=== PATIENT | female | born 1955 | race Caucasian/White ===

== ENCOUNTER 2016-03-17 11:25 | Inpatient (IN) | payer BC ==
[~2016-03-17] VITALS: Ht 170.2 cm; Wt 87.5 kg
[2016-03-17 11:27] VITALS: BP 168/82; PULSE 106; RESP 15; TEMP 97.8; O2SAT 96
--- NOTE | 2016-03-17 11:59 | PD ---
HPI Chief Complaint: Skin Problem Time Seen by Provider: 11:57 Travel History International Travel<30 days: No Contact w/Intl Traveler<30days: No Traveled to known affect area: No History of Present Illness HPI 60-year-old female presents to the emergency department for evaluation of infection to her left great toe that she noticed approximate 4 days ago. Patient has a history of diabetic neuropathy and diabetes. She states she is a type II diabetic for a long time". However, she is on insulin. Patient states that she manages her blood sugars quite well. She states that her orthopedist cut her toenails back in February and did accidently cut a callus. She states that the toe was fine until approximately 4 days ago. She states she went to an urgent care prior to coming in the emergency department and was instructed to come to the emergency department for treatment. Patient denies any fevers or chills. She denies any other complaints at this time. PFSH Past Medical History Diabetes: Yes Social History Alcohol Use: No Tobacco Use: No Substance Use: No Allergies-Medications (Allergen,Severity, Reaction): Coded Allergies: No Known Allergies (Unverified , 03/17/16) Reported Meds & Prescriptions Reported Meds & Active Scripts Active Reported Gabapentin 100 Mg Cap 100 Mg PO BID Spironolactone 100 Mg Tab 100 Mg PO BIDPC Ramipril 5 Mg Cap 5 Mg PO BID Omeprazole 20 Mg Cap Atorvastatin (Atorvastatin Calcium) 20 Mg Tab 20 Mg PO HS Glipizide 10 Mg Tab 10 Mg PO BIDAC Take 30 minutes before a meal Metformin (Metformin HCl) 500 Mg Tab 500 Mg PO BIDPC With meals Lantus Solostar Pen Inj (Insulin Glargine) 300 Unit/3 Ml Pen 1 Units SQ Trulicity Inj (Dulaglutide Inj) 1.5 Mg/0.5 Ml Pen 1.5 Mg SQ Q7D Novolog Penfill Inj (Insulin Aspart) 300 Unit/3 Ml Pen 2-10 Units SQ TIDAC PRN Review of Systems Except as stated in HPI: all other systems reviewed are Neg Physical Exam Narrative GENERAL: Well-developed well-nourished female patient, ambulatory. Afebrile. SKIN: Warm and dry. The left great toe is erythematous. There is mildly erythematous lymphangiitis and extends usp up the left lower leg on the medial side. There does appear to be an abscess collection to the left medial great toe. HEAD: Normocephalic. Atraumatic EYES: No scleral icterus. No injection or drainage. NECK: Supple, trachea midline. No JVD or lymphadenopathy. CARDIOVASCULAR: Regular rate and rhythm without murmurs, gallops, or rubs. Left pedal pulses 2+. RESPIRATORY: Breath sounds equal bilaterally. No accessory muscle use. Lungs sounds are clear to auscultation. GASTROINTESTINAL: Abdomen soft, non-tender, nondistended. MUSCULOSKELETAL: No cyanosis, or edema. Patient has slightly limited range of motion of the left great toe. She has no sensation to the distal great toe, but states this is chronic for her due to diabetic neuropathy. BACK: Nontender without obvious deformity. No CVA tenderness. Data Data Last Documented VS Vital Signs Date Time Temp Pulse Resp B/P Pulse Ox O2 Delivery O2 Flow Rate FiO2 03/17/16 11:27 97.8 106 15 168/82 96 Orders Basic Metabolic Panel (Bmp) (03/17/16 11:55) Complete Blood Count With Diff (03/17/16 11:55) Blood Culture (03/17/16 11:55) Iv Access Insert/Monitor (03/17/16 11:55) Foot, Complete (Asw1vry) (03/17/16 ) Westergren Sedimentation Rate (03/17/16 11:55) C-Reactive Protein (Crp) (03/17/16 11:55) Lactic Acid Sepsis Protocol (03/17/16 11:59) Vancomycin Inj (Vancomycin Inj) (03/17/16 12:30) Piperacil-Tazo 4.5 Gm Premix (Zosyn 4.5 (03/17/16 12:30) Wound Culture And Gram Stain (03/17/16 12:45) Sodium Chlor 0.9% 1000 Ml Inj (Ns 1000 M (03/17/16 13:15) Labs Laboratory Tests Test 03/17/16 12:05 White Blood Count 7.7 TH/MM3 Red Blood Count 4.61 MIL/MM3 Hemoglobin 15.2 GM/DL Hematocrit 43.2 % Mean Corpuscular Volume 93.6 FL Mean Corpuscular Hemoglobin 32.9 PG Mean Corpuscular Hemoglobin 35.2 % Concent Red Cell Distribution Width 13.0 % Platelet Count 206 TH/MM3 Mean Platelet Volume 7.6 FL Neutrophils (%) (Auto) 59.4 % Lymphocytes (%) (Auto) 27.2 % Monocytes (%) (Auto) 11.1 % Eosinophils (%) (Auto) 1.6 % Basophils (%) (Auto) 0.7 % Neutrophils # (Auto) 4.6 TH/MM3 Lymphocytes # (Auto) 2.1 TH/MM3 Monocytes # (Auto) 0.9 TH/MM3 Eosinophils # (Auto) 0.1 TH/MM3 Basophils # (Auto) 0.1 TH/MM3 CBC Comment DIFF FINAL Differential Comment Erythrocyte Sedimentation Rate 16 mm/hr Sodium Level 140 MEQ/L Potassium Level 3.8 MEQ/L Chloride Level 102 MEQ/L Carbon Dioxide Level 28.0 MEQ/L Anion Gap 10 MEQ/L Blood Urea Nitrogen 11 MG/DL Creatinine 0.90 MG/DL Estimat Glomerular Filtration 64 ML/MIN Rate Random Glucose 75 MG/DL Lactic Acid Level 2.3 mmol/L Calcium Level 9.6 MG/DL C-Reactive Protein 3.71 MG/DL MDM Medical Decision Making Medical Screen Exam Complete: Yes Emergency Medical Condition: Yes Medical Record Reviewed: Yes Interpretation(s) x-ray left foot - CONCLUSION: No acute bony process Differential Diagnosis Abscess versus cellulitis versus osteomyelitis Narrative Course 60-year-old female presents to the emergency department for evaluation of infection to her left great toe that started approximately 4 days ago. Patient is diabetic with a history of peripheral neuropathy. CBC, BMP, blood cultures 2, lactic acid, sedimentation rate, CRP are ordered and pending. X-ray of the left foot is ordered and pending. CBC shows no acute abnormalities. BMP shows no acute abnormalities. CRP is elevated at 3.71. Sedimentation rate is 16. Lactic acid is elevated at 2.3. X -ray of the left foot shows no acute bony process. Patient gave verbal consent for incision and drainage. I did attempt to incise and drain the fluid collection, but minimal drainage was expelled. Wound culture was taken. Patient states her primary care physician was Dr. Jordan, but her insurance changed she is not currently have a primary care physician. Residents are paged for admission. Residents are paged for admission. Dr. Mccullough accepted admission. Procedures Procedure Narrative INCISION AND DRAINAGE OF ABSCESS: The area was prepped and was sterilely draped. A number 11 scalpel was used to make a 0.5-cm incision across the area of the abscess. Cultures were obtained. Minimal drainage was obtained. Sterile dressing applied. Sepsis Criteria SIRS Criteria (2 or more): Heart rate over 90 Diagnosis Primary Impression: Cellulitis of toe of left foot Additional Impression: Diabetes type 2, controlled Qualified Code: E11.628 - Controlled type 2 diabetes mellitus with other skin complication, with long-term current use of insulin Admitting Information Admitting Physician Requests: Observation Zeynep Vang Mar 17, 2016 11:59
[2016-03-17] MEDS ORDERED: DULA0.5I SQ (12:18)
[2016-03-17] MEDS ORDERED: ATOR20TA15 PO (12:18)
[2016-03-17] MEDS ORDERED: LANTINJ SQ (12:18)
[2016-03-17] MEDS ORDERED: SPIR100T PO (12:18)
[2016-03-17] MEDS ORDERED: GABA100C4 PO (12:18)
[2016-03-17] MEDS ORDERED: METF500T PO (12:18)
[2016-03-17] MEDS ORDERED: RAMI5CAP PO (12:18)
[2016-03-17] MEDS ORDERED: OMEP20CA2 (12:18)
[2016-03-17] MEDS ORDERED: NOVOINJ SQ (12:18)
[2016-03-17] MEDS ORDERED: GLIP10TA6 PO (12:18)
[2016-03-17 12:26] LABS: AUTOMATED NEUTROPHIL # 4.6 TH/MM3 (1.8-7.7); BASOPHIL # 0.1 TH/MM3 (0-0.2); BASOPHIL % 0.7 % (0.0-2.0); EOSINOPHIL # 0.1 TH/MM3 (0-0.4); EOSINOPHIL % 1.6 % (0.0-4.0); HEMATOCRIT 43.2 % (35.0-46.0); HEMO FLAGS DIFF FINAL; LYMPH % 27.2 % (9.0-44.0); LYMPHOCYTE # 2.1 TH/MM3 (1.0-4.8); MEAN CELL VOLUME 93.6 FL (80.0-100.0); MEAN CORPUSCULAR HEMOGLOBIN 32.9 PG (27.0-34.0); MEAN CORPUSCULAR HGB CONC 35.2 % (32.0-36.0); MONO % 11.1 % (0.0-8.0); NEUT % 59.4 % (16.0-70.0); PLATELET COUNT 206 TH/MM3 (150-450); RED BLOOD COUNT 4.61 MIL/MM3 (4.00-5.30); WHITE BLOOD COUNT 7.7 TH/MM3 (4.0-11.0)
[2016-03-17] MEDS ORDERED: VANCOMYCIN INJ 1,000 MG in SODIUM CHLOR 0.9% 250 ML INJ 250 ML IV ONE (12:30)
[2016-03-17] MEDS ORDERED: PIPERACIL-TAZO 4.5 GM PREMIX 100 ML IV ONE (12:30)
[2016-03-17 12:39] LABS: POTASSIUM 3.8 MEQ/L (3.5-5.1)
--- NOTE | 2016-03-17 12:42 | RADRPT ---
EXAM DATE/TIME: 03/17/2016 12:20 [facility] COMPARISON: No previous studies available for comparison. INDICATIONS : Left foot pain. Possible infection of the first digit. MEDICAL HISTORY : Diabetes mellitus type II. SURGICAL HISTORY : None. ENCOUNTER: Initial ACUITY: 2 weeks PAIN SCORE: 5/10 LOCATION: Left foot. FINDINGS: There is no evidence of fracture, dislocation or destructive change. There is a tiny plantar heel spu r. Ossifications adjacent to the fifth metatarsal base may be related to prior trauma. Nothing looks acute. CONCLUSION: No acute bony process Rafael Carbajal MD on March 17, 2016 at 12:35 Board Certified Radiologist. This report was verified electronically.
[2016-03-17] MEDS ORDERED: SODIUM CHLOR 0.9% 1000 ML INJ 1,000 ML IV ONE (13:15)
[2016-03-17] MEDS ORDERED: Vancomycin Consult Pharmacy 1 EA XX PRN (14:00)
[2016-03-17] MEDS ORDERED: ACETAMINOPHEN 325 MG TAB PO PRN (14:00)
[2016-03-17] MEDS ORDERED: NALOXONE HCL 0.4 MG/ML AMP IV PRN (14:00)
[2016-03-17] MEDS ORDERED: ZOLPIDEM TARTRATE 5 MG TAB PO PRN (14:00)
[2016-03-17] MEDS ORDERED: SODIUM CHLORIDE 0.9% FLUSH 5 ML FLUSH FLUSH PRN (14:00)
[2016-03-17] MEDS ORDERED: DEXTROSE 50% IN WATER 50 ML VIAL(D50) IV PUSH PRN (14:15)
[2016-03-17] MEDS ORDERED: GLUCAGON 1 MG/ML VIAL OTHER PRN (14:15)
[2016-03-17 14:16] LABS: LACTIC ACID GHOST NOT REPORTABLE
--- NOTE | 2016-03-17 14:24 | HHI.HP ---
HPI Service Family Medicine Primary Care Physician No Primary Care Physician Admission Diagnosis left great toe cellulitis Diagnoses: Chief Complaint: toe infection International Travel<30 Days: No Contact w/Intl Traveler<30days: No Known Affected Area: No History of Present Illness Patient is a 60-year-old female with a past medical history significant for DM type II who presents today for a toe infection. Patient states that she first noticed her toe turning red and bleeding 2 days ago. Of note, she does not have sensation in her feet due to diabetic neuropathy. Yesterday, she started having pain and swelling in her ankle region with the pain radiating up to her medial calf. This morning, she noticed greater redness spreading up from her toe to above her ankle. She soaked her feet last night and applied Neosporin to the cut in her toe. Patient states that she has an orthopedic surgeon cut her nails every 3 months. Her last visit was around February 22 during which the surgeon accidentally nicked her left great toe. She has not had any issues with that toe since that time, but decided to use a pumice on the callus that the surgeon knicked to get rid of the black appearance of dried blood. She use the pumice on Saturday, noticed bleeding from the left great toe on Saturday, and first started noticing toe redness on . She denies any fever, chills, nausea, vomiting, diarrhea, malaise, or fatigue. She is visiting the area from [place] with her . They plan on staying until April 03. She has not had a diabetic foot wound before. She is compliant with her insulin regimen. Review of Systems Constitutional: DENIES: Fatigue, Fever, Chills Endocrine: DENIES: Heat/cold intolerance Eyes: DENIES: Blurred vision Ears, nose, mouth, throat: DENIES: Nasal discharge Respiratory: DENIES: Cough, Shortness of breath Cardiovascular: DENIES: Chest pain, Palpitations Gastrointestinal: DENIES: Abdominal pain, Diarrhea, Nausea, Vomiting Genitourinary: DENIES: Dysuria Musculoskeletal: DENIES: Muscle aches Integumentary: COMPLAINS OF: Abnormal pigmentation, Rash Immunologic/allergic: DENIES: Urticaria Neurologic: DENIES: Headache Past Family Social History Past Medical History DM type II Past Surgical History Appendectomy Cataract surgery Carpal tunnel surgery Reported Medications Reported Meds & Active Scripts Active Reported Gabapentin 100 Mg Cap 100 Mg PO BID Spironolactone 100 Mg Tab 100 Mg PO BIDPC Ramipril 5 Mg Cap 5 Mg PO BID Omeprazole 20 Mg Cap Atorvastatin (Atorvastatin Calcium) 20 Mg Tab 20 Mg PO HS Glipizide 10 Mg Tab 10 Mg PO BIDAC Take 30 minutes before a meal Metformin (Metformin HCl) 500 Mg Tab 500 Mg PO BIDPC With meals Lantus Solostar Pen Inj (Insulin Glargine) 300 Unit/3 Ml Pen 1 Units SQ Trulicity Inj (Dulaglutide Inj) 1.5 Mg/0.5 Ml Pen 1.5 Mg SQ Q7D Novolog Penfill Inj (Insulin Aspart) 300 Unit/3 Ml Pen 2-10 Units SQ TIDAC PRN Allergies: Coded Allergies: No Known Allergies (Unverified , 03/17/16) Active Ordered Medications Current Medications Medications (Trade) Dose Ordered Sig/Masoud Route Start Time Stop Time Status Last Admin (NS 1000 ml Inj) 1,000 ml @ 999 mls/hr BOLUS ONCE IV 03/17/16 13:15 03/17/16 14:15 (NS Flush) 2 ml UNSCH PRN FLUSH 03/17/16 14:00 (NS Flush) 2 ml BID FLUSH 03/17/16 21:00 (Tylenol) 650 mg Q4H PRN PO 03/17/16 14:00 (Ambien) 5 mg HS PRN PO 03/17/16 14:00 Naloxone HCl 0.4 mg 0.4 mg UNSCH PRN IV 03/17/16 14:00 Pharmacy Profile Note 0 ml @ 0 mls/hr UNSCH XX 03/17/16 14:00 UNV Vancomycin HCl 1000 mg/Sodium Chloride 250 ml @ 250 mls/hr Q12H IV 03/18/16 01:30 UNV (Zosyn 3.375 Gm Premix) 50 ml @ 100 mls/hr Q6H IV 03/17/16 19:00 UNV Family History Father: Melanoma Mother: Lung cancer, DM type II Sister: DM type II Social History No tobacco, alcohol, or illicit drug use. Lives in [place] with her . They're currently in town visiting for the month. She is a retired lab worker. Physical Exam Vital Signs Vital Signs Date Time Temp Pulse Resp B/P Pulse Ox O2 Delivery O2 Flow Rate FiO2 03/17/16 11:27 97.8 106 15 168/82 96 Physical Exam GENERAL: This is a well-nourished, well-developed female patient, in no apparent distress. SKIN: No rashes, ecchymoses or lesions. Cool and dry. Left great toe appears erythematous, nontender, warm. 2mm laceration on medial aspect of the distal left great toe without drainage or bleeding. Erythema extends about 2 inches above ankle, outlined with marking pen. No edema. HEAD: Atraumatic. Normocephalic. No temporal or scalp tenderness. EYES: Pupils equal round and reactive. Extraocular motions intact. No scleral icterus. No injection or drainage. ENT: Nose without bleeding, purulent drainage or septal hematoma. Throat without erythema, tonsillar hypertrophy or exudate. Uvula midline. Airway patent. NECK: Trachea midline. No JVD or lymphadenopathy. Supple, nontender, no meningeal signs. CARDIOVASCULAR: Regular rate and rhythm without murmurs, gallops, or rubs. Strong pedal pulses bilaterally. RESPIRATORY: Clear to auscultation. Breath sounds equal bilaterally. No wheezes , rales, or rhonchi. GASTROINTESTINAL: Abdomen soft, non-tender, nondistended. No hepato-splenomegaly , or palpable masses. No guarding. MUSCULOSKELETAL: No joint tenderness, effusion, or edema noted. No calf tenderness. NEUROLOGICAL: Awake and alert. Cranial nerves II through XII intact. Motor and sensory grossly within normal limits. Normal speech. Laboratory Laboratory Tests Test 03/17/16 12:05 White Blood Count 7.7 Red Blood Count 4.61 Hemoglobin 15.2 Hematocrit 43.2 Mean Corpuscular Volume 93.6 Mean Corpuscular Hemoglobin 32.9 Mean Corpuscular Hemoglobin 35.2 Concent Red Cell Distribution Width 13.0 Platelet Count 206 Mean Platelet Volume 7.6 Neutrophils (%) (Auto) 59.4 Lymphocytes (%) (Auto) 27.2 Monocytes (%) (Auto) 11.1 Eosinophils (%) (Auto) 1.6 Basophils (%) (Auto) 0.7 Neutrophils # (Auto) 4.6 Lymphocytes # (Auto) 2.1 Monocytes # (Auto) 0.9 Eosinophils # (Auto) 0.1 Basophils # (Auto) 0.1 CBC Comment DIFF FINAL Differential Comment Erythrocyte Sedimentation Rate 16 Sodium Level 140 Potassium Level 3.8 Chloride Level 102 Carbon Dioxide Level 28.0 Anion Gap 10 Blood Urea Nitrogen 11 Creatinine 0.90 Estimat Glomerular Filtration 64 Rate Random Glucose 75 Lactic Acid Level 2.3 Calcium Level 9.6 C-Reactive Protein 3.71 Date/Time Procedure Status Source Growth 03/17/16 13:00 Gram Stain Received Wound Toe Pending 03/17/16 13:00 Wound Culture Received Wound Toe Pending 03/17/16 12:05 Aerobic Blood Culture Received Blood Peripheral Pending 03/17/16 12:05 Anaerobic Blood Culture Received Blood Peripheral Pending Result Diagram: 03/17/16 1205 03/17/16 1205 Septic Shock Reassessment Heart: Regular rate and rhythm Lungs: Clear Skin: Warm, Dry Peripheral Pulses: Bounding Right Dorsalis Pedis Bounding Left Dorsalis Pedis Capillary Refill: Brisk Assessment and Plan Assessment and Plan Patient is a 60-year-old female with a past medical history significant for DM type II who presents today for a toe infection and is admitted for cellulitis. Code Status Full Code. Discussed Condition With dw Dr. Mancilla Problem List: (1) Cellulitis of great toe, left Status: Acute Plan: Cellulitis of left great toe after using pumice stone on callus causing small laceration. Patient is diabetic and has neuropathy. Cellulitis radiates to just above ankle. CBC wnl Afebrile ESR wnl at 16 CRP mildly elevated at 3.71 Foot X ray shows no acute bony process s/p Zosyn 4.5g IV and 1L NS in ED Plan: - Vancomycin 1.5g IV Q18H with pharmacy consult - Zosyn 3.375mg IV Q6H - Tylenol PRN fever - Mild cellulitis in the setting of diabetic neuropathy. Anticipate improvement over the next 24 hours and discharge home on PO antibiotics tomorrow. (2) T2DM (type 2 diabetes mellitus) Status: Acute Plan: Hold home Metformin, Glipizide, Lantus, Trulicity and Novolog Medium SSI with Accuchecks Diabetic Diet (3) Nutrition, metabolism, and development symptoms Status: Acute Plan: Fluids: None, tolerating PO Electrolytes: wnl, continue to monitor and replete as needed Nutrition: Diabetic Diet DVT PPx: SCD's Problem Qualifiers (1) T2DM (type 2 diabetes mellitus): Qualified Code: E11.42 - Type 2 diabetes mellitus with diabetic polyneuropathy , with long-term current use of insulin Angela Mccullough MD R2 Mar 17, 2016 14:24
[2016-03-17] MEDS: INSULIN ASPART SUPPLEMENTAL SCALE SQ SCH ×2 (16:00→20:17)
[2016-03-17] MEDS: VANCOMYCIN INJ 1,500 MG in SODIUM CHLORID 0.9% 500 ML INJ 500 ML IV SCH (16:42)
[2016-03-17 17:35] VITALS: BP 130/62; PULSE 89; RESP 16; O2SAT 98
[2016-03-17] MEDS: PIPERACIL-TAZO 3.375 GM PREMIX 50 ML IV SCH (20:00)
[2016-03-17] MEDS: GABAPENTIN 100 MG CAP PO SCH (20:14)
[2016-03-17] MEDS: SPIRONOLACTONE 100 MG TAB PO SCH (20:14)
[2016-03-17] MEDS: ATORVASTATIN 20 MG TAB PO SCH (20:14)
[2016-03-17] MEDS: SODIUM CHLORIDE 0.9% FLUSH 5 ML FLUSH FLUSH SCH (20:15)
[2016-03-17] MEDS: RAMIPRIL 5 MG CAP PO SCH (20:16)
[2016-03-17 20:43] VITALS: BP 135/68; PULSE 85; RESP 21; TEMP 98.7; O2SAT 97
[2016-03-17 23:54] VITALS: BP 143/68; PULSE 65; RESP 21; TEMP 97.8; O2SAT 98
[2016-03-18] MEDS: PIPERACIL-TAZO 3.375 GM PREMIX 50 ML IV SCH ×4 (01:27→22:33)
[2016-03-18] MEDS ORDERED: VANCOMYCIN INJ 1,000 MG in SODIUM CHLOR 0.9% 250 ML INJ 250 ML IV SCH (02:00)
[2016-03-18 04:42] VITALS: BP 117/63; PULSE 91; RESP 21; TEMP 97.9; O2SAT 98
[2016-03-18] MEDS: INSULIN ASPART SUPPLEMENTAL SCALE SQ SCH ×4 (05:58→22:34)
[2016-03-18 06:10] LABS: AUTOMATED NEUTROPHIL # 4.6 TH/MM3 (1.8-7.7); BASOPHIL # 0.1 TH/MM3 (0-0.2); BASOPHIL % 0.8 % (0.0-2.0); EOSINOPHIL # 0.2 TH/MM3 (0-0.4); EOSINOPHIL % 2.1 % (0.0-4.0); HEMATOCRIT 40.4 % (35.0-46.0); HEMO FLAGS DIFF FINAL; LYMPHOCYTE # 2.1 TH/MM3 (1.0-4.8); MEAN CELL VOLUME 93.5 FL (80.0-100.0); MEAN CORPUSCULAR HEMOGLOBIN 32.8 PG (27.0-34.0); MONO % 10.5 % (0.0-8.0); NEUT % 59.6 % (16.0-70.0); PLATELET COUNT 185 TH/MM3 (150-450); RED BLOOD COUNT 4.32 MIL/MM3 (4.00-5.30); RED CELL DISTRIBUTION WIDTH 12.8 % (11.6-17.2); WHITE BLOOD COUNT 7.8 TH/MM3 (4.0-11.0)
[2016-03-18 06:40] LABS: BICARBONATE 28.4 MEQ/L (21.0-32.0); POTASSIUM 4.4 MEQ/L (3.5-5.1)
[2016-03-18 07:40] VITALS: BP 121/62; PULSE 78; RESP 18; TEMP 97.7; O2SAT 93
[2016-03-18] MEDS ORDERED: LEVA750T PO (07:43)
--- NOTE | 2016-03-18 07:44 | HHI.DCPOC ---
Discharge Care Plan Diagnosis: (1) Cellulitis of great toe, left (2) T2DM (type 2 diabetes mellitus) Goals to Promote Your Health * To prevent worsening of your condition and complications * To maintain your health at the optimal level Directions to Meet Your Goals Take your medications as prescribed Follow your dietary instruction Follow activity as directed Keep your appointments as scheduled Take your immunizations and boosters as scheduled If your symptoms worsen call your PCP, if no PCP go to Urgent Care Center or Emergency Room Smoking is Dangerous to Your Health. Avoid second hand smoke Call the 24-hour hour crisis hotline for domestic abuse at Angela Mccullough MD R2 Mar 18, 2016 07:44
[2016-03-18] MEDS: GABAPENTIN 100 MG CAP PO SCH ×2 (08:57→22:33)
[2016-03-18] MEDS: SPIRONOLACTONE 100 MG TAB PO SCH ×2 (08:57→18:41)
[2016-03-18] MEDS: RAMIPRIL 5 MG CAP PO SCH ×2 (08:57→22:33)
[2016-03-18] MEDS: SODIUM CHLORIDE 0.9% FLUSH 5 ML FLUSH FLUSH SCH ×2 (08:58→22:33)
[2016-03-18] MEDS: VANCOMYCIN INJ 1,500 MG in SODIUM CHLORID 0.9% 500 ML INJ 500 ML IV SCH (10:00)
--- NOTE | 2016-03-18 10:12 | HHI.FPPN ---
Subjective Remarks No acute issues overnight. Vitals are stable, patient remains afebrile. She notes some improvement in her left lower extremity redness, swelling, and pain, but states that overall, her left toe looks worse to her today. She denies any chest pain, shortness of breath, fever, chills, nausea or vomiting. She had three episodes of diarrhea overnight and states that she has a history of diarrhea with antibiotic use. (Angela Mccullough MD R2) Objective Vitals Vital Signs Date Time Temp Pulse Resp B/P Pulse Ox O2 Delivery O2 Flow Rate FiO2 03/18/16 07:40 97.7 78 18 121/62 93 03/18/16 04:42 97.9 91 21 117/63 98 03/17/16 23:54 97.8 65 21 143/68 98 03/17/16 20:43 98.7 85 21 135/68 97 03/17/16 17:35 89 16 130/62 98 Room Air 03/17/16 11:27 97.8 106 15 168/82 96 I/O 03/17/16 03/17/16 03/17/16 03/18/16 03/18/16 03/18/16 07:00 15:00 23:00 07:00 15:00 23:00 Intake Total 240 ml Balance 240 ml Intake Oral 240 ml # Voids 2 (Angela Mccullough MD R2) Result Diagram: 03/18/16 0554 03/18/16 0556 Imaging Last Impressions Foot X-Ray 03/17/16 0000 Signed Impressions: Service Date/Time: Thursday, March 17, 2016 12:20 - CONCLUSION: No acute bony process Rafael Carbajal MD Objective Remarks GENERAL: This is a well-nourished, well-developed female patient, sitting up in bed in no apparent distress. SKIN: No rashes, ecchymoses or lesions. Cool and dry. Left great toe appears erythematous, nontender, warm. 2mm laceration on medial aspect of the distal left great toe with pale skin sloughing. Erythema receding from marking pen outline just superior to ankle. No edema. HEAD: Atraumatic. Normocephalic. No temporal or scalp tenderness. EYES: Pupils equal round and reactive. Extraocular motions intact. No scleral icterus. No injection or drainage. ENT: Nose without bleeding, purulent drainage or septal hematoma. Throat without erythema, tonsillar hypertrophy or exudate. Uvula midline. Airway patent. NECK: Trachea midline. No JVD or lymphadenopathy. Supple, nontender, no meningeal signs. CARDIOVASCULAR: Regular rate and rhythm without murmurs, gallops, or rubs. Strong pedal pulses bilaterally. RESPIRATORY: Clear to auscultation. Breath sounds equal bilaterally. No wheezes , rales, or rhonchi. GASTROINTESTINAL: Abdomen soft, non-tender, nondistended. No hepato-splenomegaly , or palpable masses. No guarding. MUSCULOSKELETAL: No joint tenderness, effusion, or edema noted. No calf tenderness. NEUROLOGICAL: Awake and alert. Cranial nerves II through XII intact. Motor and sensory grossly within normal limits. Normal speech. (Angela Mccullough MD R2) A/P Assessment and Plan Patient is a 60-year-old female with a past medical history significant for DM type II who presented for a toe infection and was admitted for cellulitis. Discharge Planning Anticipate discharge in the next 2-3 days pending clinical improvement. (Angela Mccullough MD R2) Attending Attestation A detailed discussion involving Dr Keating, Dr Mccullough, Dr Liu and MS Matos about patients admission occurred this am, Patient was then seen and examined, Agree with details of this note, Agree with Assessment and Plan, See Orders. ( Kendell Mancilla MD) Problem List: (1) Cellulitis of great toe, left Status: Acute Plan: Cellulitis of left great toe after using pumice stone on callus causing small laceration. Patient is diabetic and has neuropathy. s/p attempted I&D in ED, no abscess present Erythema improving on physical exam. CBC wnl Afebrile ESR wnl at 16 CRP mildly elevated at 3.71 Foot X ray shows no acute bony process s/p Zosyn 4.5g IV and 1L NS in ED Anticipate 2-3 more days of IV antibiotics Plan: - Vancomycin 1.5g IV Q18H with pharmacy consult - Zosyn 3.375mg IV Q6H - Tylenol PRN fever - Continue to monitor progress. (2) T2DM (type 2 diabetes mellitus) Status: Acute Plan: Hold home Metformin, Glipizide, Lantus, Trulicity and Novolog Bedside glucose ranging 139-145 Low-dose SSI with Accuchecks Diabetic Diet (3) Nutrition, metabolism, and development symptoms Status: Acute Plan: Fluids: None, tolerating PO Electrolytes: wnl, continue to monitor and replete as needed Nutrition: Diabetic Diet DVT PPx: SCD's, Lovenox 40mg SQ Q24H (Angela Mccullough MD R2) Problem Qualifiers (1) T2DM (type 2 diabetes mellitus): Qualified Code: E11.42 - Type 2 diabetes mellitus with diabetic polyneuropathy , with long-term current use of insulin Angela Mccullough MD R2 Mar 18, 2016 10:12 Kendell Mancilla MD Mar 18, 2016 20:51
[2016-03-18 12:00] VITALS: BP 116/58; PULSE 89; RESP 18; TEMP 96; O2SAT 96
[2016-03-18] MEDS: ENOXAPARIN SODIUM 40 MG/0.4 ML SYRINGE SQ SCH (12:14)
[2016-03-18] MEDS: LACTOBACILLUS ACIDOPHILUS TAB PO SCH ×2 (12:15→18:41)
[2016-03-18 16:00] VITALS: BP 127/78; PULSE 85; RESP 18; TEMP 95.8; O2SAT 97
[2016-03-18 20:32] VITALS: BP 127/67; PULSE 85; RESP 21; TEMP 98.7; O2SAT 97
[2016-03-18] MEDS: ATORVASTATIN 20 MG TAB PO SCH (22:33)
[2016-03-18 23:39] VITALS: BP 128/68; PULSE 87; RESP 18; TEMP 98.7; O2SAT 97
[2016-03-19] MEDS: PIPERACIL-TAZO 3.375 GM PREMIX 50 ML IV SCH ×4 (01:51→20:32)
[2016-03-19] MEDS: VANCOMYCIN INJ 1,500 MG in SODIUM CHLORID 0.9% 500 ML INJ 500 ML IV SCH ×2 (04:22→21:32)
[2016-03-19 04:41] VITALS: BP 127/68; PULSE 87; RESP 21; TEMP 97.9; O2SAT 98
[2016-03-19] MEDS: INSULIN ASPART SUPPLEMENTAL SCALE SQ SCH ×4 (05:33→20:40)
[2016-03-19 06:19] LABS: HEMATOCRIT 41.7 % (35.0-46.0); MEAN CELL VOLUME 93.6 FL (80.0-100.0); MEAN CORPUSCULAR HEMOGLOBIN 32.1 PG (27.0-34.0); MEAN CORPUSCULAR HGB CONC 34.3 % (32.0-36.0); PLATELET COUNT 186 TH/MM3 (150-450); RED BLOOD COUNT 4.45 MIL/MM3 (4.00-5.30); RED CELL DISTRIBUTION WIDTH 12.7 % (11.6-17.2); REVIEW FLAG FINAL; WHITE BLOOD COUNT 6.9 TH/MM3 (4.0-11.0)
[2016-03-19 06:41] LABS: BICARBONATE 26.4 MEQ/L (21.0-32.0)
--- NOTE | 2016-03-19 07:32 | HHI.FPPN ---
Subjective Remarks Acute issues overnight. Vitals are stable, patient remained afebrile. She has had 1 episode of diarrhea this morning. Diarrhea is nonbloody and watery. She has noticed significant improvement in her redness, swelling and pain in her left lower extremity today. She denies any chest pain, shortness breath, fever , chills, nausea or vomiting. (Angela Mccullough MD R2) Objective Vitals Vital Signs Date Time Temp Pulse Resp B/P Pulse Ox O2 Delivery O2 Flow Rate FiO2 03/19/16 04:41 97.9 87 21 127/68 98 03/18/16 23:39 98.7 87 18 128/68 97 03/18/16 20:32 98.7 85 21 127/67 97 03/18/16 16:00 95.8 85 18 127/78 97 03/18/16 12:00 96.0 89 18 116/58 96 03/18/16 07:40 97.7 78 18 121/62 93 I/O 03/18/16 03/18/16 03/18/16 03/19/16 03/19/16 03/19/16 07:00 15:00 23:00 07:00 15:00 23:00 Intake Total 240 ml 720 ml 480 ml 120 ml Balance 240 ml 720 ml 480 ml 120 ml Intake Oral 240 ml 720 ml 480 ml 120 ml # Voids 2 8 2 # Bowel Movements 1 1 (Angela Mccullough MD R2) Result Diagram: 03/19/16 0551 03/19/16 0551 Imaging Last Impressions Foot X-Ray 03/17/16 0000 Signed Impressions: Service Date/Time: Thursday, March 17, 2016 12:20 - CONCLUSION: No acute bony process Rafael Carbajal MD Objective Remarks GENERAL: This is a well-nourished, well-developed female patient, sitting up in bed in no apparent distress. SKIN: No rashes, ecchymoses or lesions. Cool and dry. Left great toe erythema receding, nontender, warm. 2mm laceration on medial aspect of the distal left great toe with pale skin sloughing, possible blister development. Erythema receding from marking pen outline just superior to ankle. No edema. HEAD: Atraumatic. Normocephalic. No temporal or scalp tenderness. EYES: Pupils equal round and reactive. Extraocular motions intact. No scleral icterus. No injection or drainage. ENT: Nose without bleeding, purulent drainage or septal hematoma. Throat without erythema, tonsillar hypertrophy or exudate. Uvula midline. Airway patent. NECK: Trachea midline. No JVD or lymphadenopathy. Supple, nontender, no meningeal signs. CARDIOVASCULAR: Regular rate and rhythm without murmurs, gallops, or rubs. Strong pedal pulses bilaterally. RESPIRATORY: Clear to auscultation. Breath sounds equal bilaterally. No wheezes , rales, or rhonchi. GASTROINTESTINAL: Abdomen soft, non-tender, nondistended. No hepato-splenomegaly , or palpable masses. No guarding. MUSCULOSKELETAL: No joint tenderness, effusion, or edema noted. No calf tenderness. NEUROLOGICAL: Awake and alert. Cranial nerves II through XII intact. Motor and sensory grossly within normal limits. Normal speech. (Angela Mccullough MD R2) A/P Assessment and Plan Patient is a 60-year-old female with a past medical history significant for DM type II who presented for a toe infection and was admitted for cellulitis. Discharge Planning Anticipate discharge tomorrow pending continued clinical improvement. (Angela Mccullough MD R2) Attending Attestation Patient seen and examined. Case reviewed and discussed with the resident team. Agree with plan of care as discussed with me and documented in the resident note. (Kendell Mancilla MD) Problem List: (1) Cellulitis of great toe, left Status: Acute Plan: Improving. Cellulitis of left great toe after using pumice stone on callus causing small laceration. Patient is diabetic and has neuropathy. s/p attempted I&D in ED, no abscess present CBC wnl Afebrile ESR wnl at 16 CRP mildly elevated at 3.71 Foot X ray shows no acute bony process Lactic acid initially trending up from 2.3-4.3, now resolved at 0.9 s/p Zosyn 4.5g IV and 1L NS in ED Plan: - Vancomycin 1.5g IV Q18H with pharmacy consult - Zosyn 3.375mg IV Q6H - Tylenol PRN fever - Continue to monitor progress. (2) T2DM (type 2 diabetes mellitus) Status: Acute Plan: Hold home Metformin, Glipizide, Lantus, Trulicity and Novolog Bedside glucose ranging [id number], requiring 3 units in the past 24 hours Low-dose SSI with Accuchecks Diabetic Diet (3) Nutrition, metabolism, and development symptoms Status: Acute Plan: Fluids: None, tolerating PO Electrolytes: wnl, continue to monitor and replete as needed Nutrition: Diabetic Diet DVT PPx: SCD's, Lovenox 40mg SQ Q24H (Angela Mccullough MD R2) Problem Qualifiers (1) T2DM (type 2 diabetes mellitus): Qualified Code: E11.42 - Type 2 diabetes mellitus with diabetic polyneuropathy , with long-term current use of insulin Angela Mccullough MD R2 Mar 19, 2016 07:32 Kendell Mancilla MD Mar 20, 2016 19:08
[2016-03-19 08:06] VITALS: BP 118/60; PULSE 83; RESP 20; TEMP 97.5; O2SAT 95
[2016-03-19] MEDS: SODIUM CHLORIDE 0.9% FLUSH 5 ML FLUSH FLUSH SCH ×2 (08:09→20:32)
[2016-03-19] MEDS: LACTOBACILLUS ACIDOPHILUS TAB PO SCH ×3 (08:48→16:35)
[2016-03-19] MEDS: RAMIPRIL 5 MG CAP PO SCH ×2 (08:48→20:33)
[2016-03-19] MEDS: SPIRONOLACTONE 100 MG TAB PO SCH ×3 (08:48→17:00)
[2016-03-19] MEDS: GABAPENTIN 100 MG CAP PO SCH ×2 (08:48→20:33)
[2016-03-19] MEDS: ENOXAPARIN SODIUM 40 MG/0.4 ML SYRINGE SQ SCH (11:00)
[2016-03-19 11:26] VITALS: BP 135/68; PULSE 83; RESP 18; TEMP 97.9; O2SAT 96
[2016-03-19 16:02] VITALS: BP 114/82; PULSE 89; RESP 18; TEMP 97; O2SAT 97
[2016-03-19 20:00] VITALS: BP 116/68; PULSE 81; RESP 16; TEMP 97.1; O2SAT 98
[2016-03-19] MEDS: ATORVASTATIN 20 MG TAB PO SCH (20:33)
[2016-03-20] VITALS: BP 140/71; PULSE 75; RESP 18; TEMP 96.5; O2SAT 97
[2016-03-20] MEDS: PIPERACIL-TAZO 3.375 GM PREMIX 50 ML IV SCH ×2 (01:08→08:52)
--- NOTE | 2016-03-20 01:19 | HHI.DS ---
Discharge Summary Admission Date Mar 18, 2016 at 09:21 Discharge Date: Mar 20, 2016 Admitting Diagnosis left great toe cellulitis (1) Cellulitis of great toe, left Diagnosis: Principal Plan: Cellulitis of L great toe after using pumice stone on callus causing small laceration. Patient is diabetic with significant neuropathy. S/p attempted I&D in ED 03/17, no abscess present. Wound culture (03/17) grew Staph aureus. Blood cultures (03/17) neg x2. Afebrile. CBC, ESR wnl. CRP mildly elevated 3.7. Lactic acid peaked at 4.3, now resolved. Foot Xray: no bony process Plan: - Vancomycin 1.5g IV Q18H with pharmacy consult (03/17-03/20) - Zosyn 3.375mg IV Q6H (03/17-03/20) - Discharge with Levaquin 750mg x7 days (03/21- 03/27)- 10 days total treatment - Follow up with primary care provider in 1 week (2) Recurrent candidiasis of vagina Diagnosis: Secondary Plan: -discharge with diflucan 150mg x1 for ppx for recurrent vulvovaginitis while on abx (3) T2DM (type 2 diabetes mellitus) Diagnosis: Secondary Plan: While in hospital, held home meds, LSSI, diabetic diet At discharge, restart home Metformin, Glipizide, Lantus, Trulicity and Novolog (4) HLD (hyperlipidemia) Diagnosis: Secondary Plan: Continue home Lipitor (5) HTN (hypertension) Diagnosis: Secondary Plan: Continue home ramipril, spironolactone (6) Low back pain Diagnosis: Secondary Plan: Continue home gabapentin [facility] Procedures 03/17/16- Attempted I&D in ED, no abscess present Brief History 60y female with DM2, visiting from [place], presents today for toe infection. She has severe diabetic neuropathy and used a pumace stone on her large toe 3 days ago to get rid of blood blister under skin. Toe had redness and bleeding x2 days with pain and swelling up medial calf x1 day. Treated feet by soaking and applying Neosporin with no significant improvement. Has orthopedic surgeon cut her nails every 3 months. Denies any fever, chills, nausea, vomiting, diarrhea, malaise, or fatigue. Denies hx of diabetic foot wound. Compliant with her insulin regimen. CBC/BMP: 03/19/16 0551 03/19/16 0551 Significant Findings Laboratory Tests Test 03/17/16 03/18/16 03/18/16 03/18/16 12:05 05:54 05:56 10:45 Monocytes (%) (Auto) 11.1 % 10.5 % (0.0-8.0) (0.0-8.0) Estimat Glomerular Filtration 64 ML/MIN (>89) 55 ML/MIN (>89) Rate Lactic Acid Level 2.3 mmol/L 4.3 mmol/L (0.4-2.0) (0.4-2.0) C-Reactive Protein 3.71 MG/DL (0.00-0.30) Creatinine 1.02 MG/DL (0.50-1.00) Random Glucose 144 MG/DL (74-106) Test 03/19/16 05:51 Estimat Glomerular Filtration 60 ML/MIN (>89) Rate Random Glucose 166 MG/DL (74-106) Imaging Last Impressions Foot X-Ray 03/17/16 0000 Signed Impressions: Service Date/Time: Thursday, March 17, 2016 12:20 - CONCLUSION: No acute bony process Rafael Carbajal MD PE at Discharge GENERAL: Adult female in NAD SKIN: Left great toe erythema receding, nontender, warm. 2mm laceration on medial aspect of the distal left great toe with pale skin sloughing, possible blister development. Erythema receding from marking pen outline just superior to ankle. No edema. HEENT: PERRL. MMM CV: RRR. No murmurs. +2 dorsalis pedis pulses RESP: Lungs CTAB. GI: Soft, NTND. MSK: Muscle tone symmetrical. Moves limbs against gravity without difficulty. NEURO: Apart from dullness to touch in bilateral feet, grossly motor and sensory intact. PSYCH: Normal affect. Good insight. Hospital Course 60y female with DM2 and significant diabetic neuropathy hospitalized 03/17- for treatment Staph aureus cellulitis L great toe/LLE. Pt cause irritation and infection of skin after using pumace stone to remove unsightly blood blister. Pt has significant neuropathy and could not feel injury. Wound culture grew Staph Aureus. Treated with Vancomycin IV and Zosyn IV (03/17- 03/20). Discharged with 7d Levaquin (03/21-03/27)- 10 days total and bactroban ointment. Discharged with Macrobid 50mg HS x7 days for UTI ppx at pt request while on abx. Mild bon-blood diarrhea secondary to abx while hospitalized, resolved at discharge, negative for C. diff. Medication changes and recommended follow up as below. . Pt Condition on Discharge: Stable Discharge Disposition: Discharge Home Discharge Instructions DIET: Follow Instructions for: Diabetic Diet Activities you can perform: Regular-No Restrictions (do not go into ocean/ jacuzzis until entirely healed/at least 1 week) Follow up Referrals: PCP Follow-up - 1 Week New Medications: Fluconazole (Diflucan) 150 Mg Tab 150 MG PO ONCE Take one pill day of discharge. No further action needed. If symptoms persist 7 days later, refill script, take second pill. Infection #1 Ref 1 TAB Levofloxacin (Levaquin) 750 Mg Tab 750 MG PO DAILY Infection #7 Ref 0 TAB Mupirocin Topical (Bactroban Topical) 2 % Cream 1 APPLIC TOPICAL BID Apply for one week to toe Mgmt Bacterial Infection #1 Ref 0 TUBE Continued Medications: Atorvastatin (Atorvastatin) 20 Mg Tab 20 MG PO HS Cholesterol Management #30 Ref 0 TAB Dulaglutide Inj (Trulicity Inj) 1.5 Mg/0.5 Ml Pen 1.5 MG SQ Q7D Blood Sugar Management #4 Ref 0 PEN Gabapentin (Gabapentin) 100 Mg Cap 100 MG PO BID #60 Ref 0 CAP Glipizide (Glipizide) 10 Mg Tab 10 MG PO BIDAC Take 30 minutes before a meal Blood Sugar Management #60 Ref 0 TAB Insulin Aspart Inj (Novolog Penfill Inj) 300 Unit/3 Ml Pen 2-10 UNITS SQ TIDAC PRN Blood Sugar Management Ref 0 BOX Insulin Glargine Inj (Lantus Solostar Pen Inj) 300 Unit/3 Ml Pen 1 UNITS SQ Blood Sugar Management Ref 0 PEN Metformin (Metformin) 500 Mg Tab 500 MG PO BIDPC With meals Blood Sugar Management #60 Ref 0 TAB Omeprazole (Omeprazole) 20 Mg Cap Ramipril (Ramipril) 5 Mg Cap 5 MG PO BID #60 Ref 0 CAP Spironolactone (Spironolactone) 100 Mg Tab 100 MG PO BIDPC #60 Ref 0 TAB Bibiana Liu MD R1 Mar 20, 2016 01:19
[2016-03-20 04:00] VITALS: BP 125/72; PULSE 78; RESP 16; TEMP 97; O2SAT 98
[2016-03-20] MEDS: INSULIN ASPART SUPPLEMENTAL SCALE SQ SCH (05:31)
--- NOTE | 2016-03-20 06:57 | HHI.FPPN ---
Subjective Remarks Overnight, URIEL. AFVSS. Good Ins, outs not recorded. Eating, voiding, stooling without difficulty. Ambulating per PT. No pain in ankle (no sensation in foot at baseline). Redness almost completely resolved. Expressed understanding of discharge with 7 days antibiotic, bactroban creme to apply to foot, and not going into jacuzzis/ocean for at least 1 week. Pt stated she always gets yeast infection while on abx- asks for rx prophylactic med (Bibiana Liu MD R1) Objective Vitals Vital Signs Date Time Temp Pulse Resp B/P Pulse Ox O2 Delivery O2 Flow Rate FiO2 03/20/16 04:00 97.0 78 16 125/72 98 03/20/16 00:00 96.5 75 18 140/71 97 03/19/16 20:00 97.1 81 16 116/68 98 03/19/16 16:02 97.0 89 18 114/82 97 03/19/16 11:26 97.9 83 18 135/68 96 03/19/16 08:06 97.5 83 20 118/60 95 I/O 03/19/16 03/19/16 03/19/16 03/20/16 03/20/16 03/20/16 07:00 15:00 23:00 07:00 15:00 23:00 Intake Total 120 ml 840 ml 240 ml Balance 120 ml 840 ml 240 ml Intake Oral 120 ml 840 ml 240 ml # Voids 2 3 1 # Bowel Movements 1 (Bibiana Liu MD R1) Result Diagram: 03/19/16 0551 03/19/16 0551 Imaging Last Impressions Foot X-Ray 03/17/16 0000 Signed Impressions: Service Date/Time: Thursday, March 17, 2016 12:20 - CONCLUSION: No acute bony process Rafael Carbajal MD Objective Remarks GENERAL: Adult female in NAD SKIN: Left great toe erythema almost resolved. Significantly improved from area marked mid-calf on admissio Nontender, warm, no edema. Blood blister development, no fluid expression from small laceration. HEET: PERRL. MMM CV: RRR. No murmurs. +2 dorsalis pedis pulses RESP: Lungs CTAB. GI: NTND. MSK: Muscle tone symmetrical NEURO: Dullness to touch in bilateral feet, otherwise grossly motor and sensory intact. PSYCH: Normal affect. Good insight. Procedures 03/17/16- Attempted I&D in ED, no abscess present (Bibiana Liu MD R1) Urinary Catheter: No (Bibiana Liu MD R1) Vascular Central Line Catheter: No (Bibiana Liu MD R1) A/P Assessment and Plan 60y with DM2 and significant peripheral neuropathy admitted 03/17/15 for Staph aureus cellulitis LLE secondary to abrasion with pumice stone. Discharge Planning Today, 03/20/15, ready for discharge provided medications are printed and in chart SDW: Dr. Mancilla (Bibiana Liu MD R1) Attending Attestation Patient seen and examined. Case reviewed and discussed with the resident team. Agree with plan of care as discussed with me and documented in the resident note. (Kendell Mancilla MD) Problem List: (1) Cellulitis of great toe, left Status: Acute Plan: Cellulitis of L great toe after using pumice stone on callus causing small laceration. Patient is diabetic with significant neuropathy. S/p attempted I&D in ED 03/17, no abscess present. Wound culture (03/17) grew Staph aureus. Blood cultures (03/17) neg x2. Afebrile. CBC, ESR wnl. CRP mildly elevated 3.7. Lactic acid peaked at 4.3, now resolved. Foot Xray: no bony process Plan: - Vancomycin 1.5g IV Q18H with pharmacy consult (03/17-03/20) - Zosyn 3.375mg IV Q6H (03/17-03/20) - Discharge with Levaquin 750mg x7 days (03/21- 03/27)- 10 days total treatment - Follow up with primary care provider in 1 week (2) Recurrent candidiasis of vagina Status: Chronic Plan: - Discharge with Diflucan 150mg x1 for vulvovaginal candidiasis ppx while on abx. Take day of discharge (3) T2DM (type 2 diabetes mellitus) Status: Acute Plan: While in hospital, held home meds, LSSI, diabetic diet At discharge, restart home Metformin, Glipizide, Lantus, Trulicity and Novolog (4) HLD (hyperlipidemia) Status: Chronic Plan: Continue home Lipitor (5) HTN (hypertension) Status: Chronic Plan: Continue home ramipril, spironolactone (6) Low back pain Status: Chronic Plan: Continue home gabapentin (7) Nutrition, metabolism, and development symptoms Status: Acute Plan: Fluids: None, tolerating PO Electrolytes: wnl, continue to monitor and replete as needed Nutrition: Diabetic Diet DVT PPx: SCD's, Lovenox 40mg SQ Q24H (Bibiana Liu MD R1) Problem Qualifiers (1) T2DM (type 2 diabetes mellitus): Qualified Code: E11.42 - Type 2 diabetes mellitus with diabetic polyneuropathy , with long-term current use of insulin (2) Low back pain: Bibiana Liu MD R1 Mar 20, 2016 06:57 Kendell Mancilla MD Mar 20, 2016 19:10
[2016-03-20 07:30] LABS: BICARBONATE 25.2 MEQ/L (21.0-32.0); POTASSIUM 3.7 MEQ/L (3.5-5.1)
[2016-03-20 08:00] VITALS: BP 142/82; PULSE 84; RESP 18; TEMP 97; O2SAT 99
[2016-03-20] MEDS: GABAPENTIN 100 MG CAP PO SCH (08:52)
[2016-03-20] MEDS: RAMIPRIL 5 MG CAP PO SCH (08:52)
[2016-03-20] MEDS: LACTOBACILLUS ACIDOPHILUS TAB PO SCH (08:52)
[2016-03-20] MEDS: SODIUM CHLORIDE 0.9% FLUSH 5 ML FLUSH FLUSH SCH (08:53)
[2016-03-20] MEDS: SPIRONOLACTONE 100 MG TAB PO SCH (08:53)
[2016-03-20] MEDS ORDERED: NITR50CA27 PO (09:27)
[2016-03-20] MEDS ORDERED: LEVA750T PO ×2 (09:27→11:31)
[2016-03-20] MEDS ORDERED: MUPI2%T TOPICAL ×2 (09:29→11:31)
[2016-03-20] MEDS ORDERED: DIFL150T PO ×2 (11:26→11:30)
[2016-03-20] MEDS ORDERED: PHARMACY ORDERED LAB XX ONE (21:45)
== END 2016-03-20 11:48 | disposition home or self-care (01) | DRG 603 ==
LOC: EDBD → NEPE 11:25 → NEDH 13:15 → NEPGCP 18:23 → OBSVTOIN 03-18 09:21 → HOCB 03-19 16:05
PROVIDERS: ADMIT Family Medicine; ATTEND Family Medicine
PROC: 0H9NXZZ Drainage of Left Foot Skin, External Approach (ICD-10-PCS; principal; 2016-03-18)
DX: L03.032 Cellulitis of left toe (principal); L03.116 Cellulitis of left lower limb; E11.42 Type 2 diabetes mellitus with diabetic polyneuropathy; B37.3 Candidiasis of vulva and vagina; I10 Essential (primary) hypertension; R19.7 Diarrhea, unspecified; E78.5 Hyperlipidemia, unspecified; M54.5 Low back pain; B95.61 Methicillin susceptible Staphylococcus aureus infection as the cause of diseases classified elsewhere; Z79.4 Long term (current) use of insulin; Z83.3 Family history of diabetes mellitus
CPT/HCPCS: 10060; 73630; 80048; 82948; 83605; 85025; 85027; 85652; 86140; 86403; 87040; 87070; 87147; 87186; 87205; 96374; G0378; J1650; J1815; J2543; J3370; J7030; J7040